=== PATIENT | female | born 1980 | race Caucasian/White ===

== ENCOUNTER 2017-06-13 18:13 | Emergency (ER) | payer OTHER ==
[2017-06-13] MEDS ORDERED: Ondansetron ODT 4 MG TAB ONE (18:25)
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
--- NOTE | 2017-06-13 19:26 | RAD ---
THREE VIEWS LUMBAR SPINE 06/13/17 HISTORY: Lower back pain and right foot pain. Comparison made with study on 11/24/16. FINDINGS: Again noted are five nonribbearing lumbar type vertebral bodies. There are scattered osteophytes in t he lumbar spine with persistent narrowing of the L2-3 intervertebral disc space with end plate degene rative changes. The vertebral body heights are within normal limits. No fracture or subluxation is se en involving the lumbar spine. IMPRESSION: 1. Stable views of the lumbar spine with prominent degenerative changes at the L2-3 level. 2. No fracture or subluxation involving the lumbar spine. POS: [facility]
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
== END 2017-06-13 20:42 | disposition home or self-care (01) ==
LOC: ERS 18:13
DX: S93.601A Unspecified sprain of right foot, initial encounter (principal); S93.401A Sprain of unspecified ligament of right ankle, initial encounter; S39.012A Strain of muscle, fascia and tendon of lower back, initial encounter; I10 Essential (primary) hypertension; J45.909 Unspecified asthma, uncomplicated; E66.01 Morbid (severe) obesity due to excess calories; M19.90 Unspecified osteoarthritis, unspecified site; F41.9 Anxiety disorder, unspecified; F32.9 Major depressive disorder, single episode, unspecified; V43.52XA Car driver injured in collision with other type car in traffic accident, initial encounter
CPT/HCPCS: 72100; 96372; J2270; Q0162